=== PATIENT | female | born 1975 | race Two or more races ===

== ENCOUNTER 2019-12-15 18:33 | Emergency (ER) | payer SELFPAY ==
[~2019-12-15] VITALS: Ht 157.5 cm; Wt 49.0 kg
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
--- NOTE | 2019-12-15 19:00 | NUR ---
PATIENT TAKEN TO CT.
--- NOTE | 2019-12-15 19:17 | NUR ---
CAME BACK FROM CT.
--- NOTE | 2019-12-15 19:45 | NUR ---
[employer] AT BEDSIDE
--- NOTE | 2019-12-15 19:56 | NUR ---
Patient discharged to home in stable condition. Written and verbal after care instructions given. Patient verbalizes understanding of instruction.
[2019-12-15 19:58] VITALS: BP 121/75
== END 2019-12-15 19:58 | disposition home or self-care (01) ==
LOC: ER 18:37
DX: S09.8XXA Other specified injuries of head, initial encounter (principal); M54.2 Cervicalgia; Y08.89XA Assault by other specified means, initial encounter; Y93.89 Activity, other specified; Y92.511 Restaurant or cafe as the place of occurrence of the external cause; Y99.8 Other external cause status
CPT/HCPCS: 70450-TC; 72125-TC